=== PATIENT | male | born 1980 | race Caucasian/White ===

== ENCOUNTER 2017-01-14 07:36 | Day surgery (SDC) | payer BC ==
[~2017-01-14 07:36] MED LIST: ACETAMINOPHEN 1,000 MG/100 ML BTL IV ONE; CEFAZOLIN 2 Gram 2 GM/50 ML BAG IVPB ONE; FAMOTIDINE 20MG TABLET PO ONE; MECLIZINE 25 MG TABLET PO ONE; METOCLOPRAMIDE 10 MG TABLET PO ONE
[2017-01-14] MEDS ORDERED: SUCCINYLCHOLINE 20 MG/ML 10ML IVP ONE (07:37)
[2017-01-14] MEDS ORDERED: MORPHINE SULFATE 5 MG/ML PFS IVP ONE (07:37)
[2017-01-14] MEDS ORDERED: EPINEPHRINE 1 MG/ML AMPUL SQ ONE (07:37)
[2017-01-14] MEDS ORDERED: TRAMADOL HCL 50 MG TABLET PO ONE (07:37)
[2017-01-14] MEDS ORDERED: SEVOFLURANE 250 ML INH ONE (07:37)
[2017-01-14] MEDS ORDERED: ROPIVACAINE HCL (NAROPIN) /PF 5MG/ML 20ML VIAL IV ONE ×2 (07:37)
[2017-01-14] MEDS ORDERED: KETOROLAC 30 MG/ML VIAL IVP ONE (07:37)
[2017-01-14] MEDS ORDERED: LIDOCAINE 2% MDV (20MG/ML) 20ML VIAL IV ONE (07:37)
[2017-01-14] MEDS ORDERED: BUPIVACAINE 0.75% W/EPI MPF 30ML VIAL IVP ONE ×2 (07:37)
[2017-01-14] MEDS ORDERED: GLYCOPYRROLATE 0.2 MG/ML ML IV ONE (07:37)
[2017-01-14] MEDS ORDERED: ONDANSETRON HCL IV 4 MG/2 ML VIAL IVP ONE (07:37)
[2017-01-14] MEDS ORDERED: ROCURONIUM BROMIDE 50MG/5ML VIAL IV ONE (07:37)
[2017-01-14] MEDS ORDERED: NEOSTIGMINE 1 MG/1 ML,10ML VIAL IV ONE (07:37)
[2017-01-14] MEDS ORDERED: FENTANYL PF 100MCG/2ML VIAL IV ONE (07:37)
[2017-01-14] MEDS ORDERED: DEXAMETHASONE 4 MG/ML 1ML VIAL IVP ONE ×2 (07:37)
[2017-01-14] MEDS ORDERED: MIDAZOLAM HCL 2MG/2ML VIAL IV ONE (07:37)
[2017-01-14] MEDS ORDERED: PROPOFOL 10 MG/ML VIAL IV ONE (07:37)
--- NOTE | 2017-01-15 05:24 | Operative Note ---
DATE: 01/14/2017. PREOPERATIVE DIAGNOSIS: PERSISTENT IMPINGEMENT OF THE RIGHT SHOULDER. POSTOPERATIVE DIAGNOSES: 1. EXTERNAL IMPINGEMENT OF THE RIGHT SHOULDER. 2. MILD SYNOVITIS OF THE RIGHT SHOULDER. 3. ARTHROSIS OF THE RIGHT DISTAL CLAVICLE. PROCEDURES: 1. RIGHT SHOULDER ARTHROSCOPY WITH INTRA-ARTICULAR DEBRIDEMENT. 2. RIGHT SHOULDER OPEN ACROMIOPLASTY, CORACOACROMIAL LIGAMENT RESECTION, AND SUBACROMIAL BURSECTOMY. 3. RIGHT SHOULDER DISTAL CLAVICLE RESECTION. STAFF SURGEON: Fernando Carrillo M.D. ANESTHESIA: General. PREPARATION: ChloraPrep. INDIVIDUAL CONSIDERATIONS: None. DESCRIPTION OF PROCEDURE: The patient was taken to the operating and placed supine on the operating table. He had a successful induction of a general anesthetic. He was then placed in a semi-seated beach chair position, and his right arm and shoulder were prepped and draped in the usual fashion. Examination under anesthesia showed no instability. The patient had a posterior portal identified for arthroscopy. The skin was infiltrated with 0.5 % Marcaine with epinephrine prior. An 18-gauge spinal needle was placed in the joint, and the joint was inflated with normal saline with a 60 mL syringe. A stab wound was made, a blunt-tipped trocar for the scope was placed in the joint , and the joint was inflated with normal saline. The arthroscope was placed inside the joint. An anterior accessory portal was made just inferior to the intact long head of the biceps tendon in a retrograde fashion with a Wissinger lucian. The joint was irrigated out. The patient had some mild synovitis anteriorly. The rotator cuff underneath looked contused but was intact. The glenohumeral joint was normal. The labrum was otherwise normal. The subscapularis was normal. No loose bodies or synovitis were seen in the inferior pouch. The anterior synovitis was debrided with a shaver, and the arthroscopy instruments were removed. The patient had an anterior approach to the subacromial space and distal clavicle. The skin was again infiltrated with 0.5% Marcaine with epinephrine prior. Sharp dissection was carried down through the skin and subcutaneous tissue. Small veins were coagulated with a Bovie. An anterior deltoid interval was developed. Care was taken not to split the deltoid more than about 4.0 cm distal to the anterior tip of the acromion to prevent injury to the axillary nerve. The subacromial space was extremely tight. There was a very sharp spur anteriorly on the acromioplasty and small spurs extending from the distal clavicle. The deltoid was then taken subperiosteally off the anterior aspect of the acromion, over the top of the intact coracoacromial ligament, and off the anterior aspect of the highly degenerated distal clavicle. The coracoacromial ligament was resected with a Bovie. The distal clavicle was resected with an oscillating saw, taking slightly less than 1.0 cm. The patient, again, had a downsloping acromion and a sharp spur. An anterior acromioplasty was done with an oscillating saw, taking just under 1.0 cm, but tapering to the edge posteromedially to include the spur at the acromioclavicular joint. The undersurface was smoothed with a rasp. I now as able to debride out the bursa. The bursa was markedly thickened. In some areas it was 1.0 cm thick, and I was able to debride it out. I now had a good look at the rotator cuff. It looked contused, but there was nothing to repair. After irrigation, the deltoid was reattached to the remaining acromion with multiple interrupted #2 Vicryl going directly through the bony acromion. The periosteal cuff of the distal clavicle was closed with a running #2 Vicryl. The anterior deltoid interval was closed with running 0 Vicryl. Subcutaneous was closed with #2-0+ Vicryl. The skin was closed with tiki. An 18-gauge spinal needle was placed in the subacromial space, and 10 mL of 0.75% Marcaine with epinephrine was injected into the space. A sterile bulky compressive dressing and sling were applied. The patient tolerated the procedure well, and needle and sponge counts were correct. Estimated blood loss was minimal, and he was taken back recovery in good condition. There were no complications. Job Number: [id number] [facility]
== END 2017-01-14 13:10 | disposition home or self-care (01) ==
LOC: SUR 07:36
PROVIDERS: ATTEND Orthopaedic Surgery
DX: M25.811 Other specified joint disorders, right shoulder (principal); M65.811 Other synovitis and tenosynovitis, right shoulder; M19.011 Primary osteoarthritis, right shoulder; F17.210 Nicotine dependence, cigarettes, uncomplicated
CPT/HCPCS: 23130; 29822; 00450; 64415; J1885; J2405; J3010; J0690; J2270; J2795; J3490; J0171; J0330; J2710